=== PATIENT | male | born 1945 | race Two or more races ===

== ENCOUNTER 2020-04-19 18:22 | Emergency (ER) | payer OTHER ==
[~2020-04-19] VITALS: Ht 172.7 cm; Wt 95.3 kg
[2020-04-19 18:38] VITALS: BP 131/52
[2020-04-19] MEDS ORDERED: DexAMETHasone SOD PHOS 10MG/1ML VIAL INJ IM ONE (18:45)
[2020-04-19] MEDS ORDERED: AZITHROMYCIN 500MG/ 250ML 250 ML IV ONE (18:45)
[2020-04-19] MEDS ORDERED: AZITHROMYCIN 250 MG TAB PO ONE (19:00)
[2020-04-19] MEDS ORDERED: DexAMETHasone 4 MG TAB PO ONE (19:00)
== END 2020-04-19 19:06 | disposition home or self-care (01) ==
LOC: ER 18:22
DX: U07.1 COVID-19 (principal); J18.9 Pneumonia, unspecified organism; E11.9 Type 2 diabetes mellitus without complications; I11.0 Hypertensive heart disease with heart failure; I50.9 Heart failure, unspecified; Z88.8 Allergy status to other drugs, medicaments and biological substances
CPT/HCPCS: 71045; 99283; J8540